=== PATIENT | male | born 1955 | race Hispanic/Latino ===

== ENCOUNTER 2019-07-10 18:17 | Emergency (ER) | payer OTHER, SELFPAY ==
--- NOTE | ~2019-07-10 | XR_ITS ---
EXAMINATION: XR chest 2V DATE: 07/10/2019 19:43 INDICATION: Cough and fever TECHNIQUE: PA and lateral views of the chest were obtained. COMPARISON: None FINDINGS: Hyperexpansion of lungs with flattening of the diaphragm and increased lucency with architectural dis tortion at the upper lung zones suggestive but not diagnostic of COPD. A few scattered small calcifie d pulmonary nodules consistent with old granulomatous disease. Bronchovascular crowding with bronchia l wall thickening in the bilateral lower lung zones. Mild tracheal bibasilar atelectasis. No pleural effusion or pneumothorax. The cardiomediastinal silhouette is normal. Visualized bones and soft tissu es are unremarkable. IMPRESSION: 1. Emphysema with bronchitis and mild basilar atelectasis. Reviewed, dictated and finalized at location A. [employer]
--- NOTE | ~2019-07-10 | CT_ITS ---
EXAMINATION: CT abdomen pelvis wo con DATE: 07/10/2019 22:06 INDICATION: Fever and abdominal pain. TECHNIQUE: Computed tomography (CT) of the abdomen and pelvis was performed without intravenous contr ast. Automated exposure control and iterative reconstruction technique were employed. The dose-length product was 388.29 mGy-cm. COMPARISON: None FINDINGS: Bronchial wall thickening and scattered mucous plugging in the right middle and bilateral lower lobes . There are patchy groundglass opacity in each of these lobes most prominent in the right lower lobe consistent with pneumonia. No pleural effusion. Heart size is normal. Atherosclerotic coronary artery calcifications. No pericardial effusion. Liver, gallbladder, spleen, pancreas, bilateral adrenal gla nds are normal. Bilateral nonobstructing renal stones measuring 4 mm the lower pole of the right kidn ey and 1 mm at the upper and lower poles of the left kidney. No hydronephrosis. Bowels including the appendix are normal. Bladder is normal. Prostatomegaly. There is calcified atherosclerosis of the aor ta and bilateral iliac arteries. No free intraperitoneal gas or fluid. No pathologically enlarged abd ominal or pelvic lymphadenopathy. There are few scattered bone islands in the spine and pelvis. There is a 12 x 10 x 18 mm more irregular sclerotic lesion in S3 which abuts the anterior and posterior co rtices but without evident erosions favoring a benign etiology such as enchondroma. IMPRESSION: 1. Bronchitis with mucous plugging and multifocal pneumonia most prominent in the right lower lobe an d to a lesser degree the right middle and left lower lobes. 2. Nonobstructing nephrolithiasis. 3. Prostatomegaly. 4. Irregular sclerotic lesion at S3 without aggressive features which favors a benign etiology such a s enchondroma. Would recommend correlation with any prior outside imaging if available. Otherwise cou ld consider bone scan for further evaluation. Reviewed, dictated and finalized at location A. [facility] IMPRESSION: 1. Bronchitis with mucous plugging and multifocal pneumonia most prominent in t he right lower lobe and to a lesser degree the right middle and left lower lobe s. 2. Nonobstructing nephrolithiasis. 3. Prostatomegaly. 4. Irregular sclerotic lesion at S3 without aggressive features which favors a benign etiology such as enchondroma. Would recommend correlation with any prior outside imaging if available. Otherwise could consider bone scan for further e valuation.
[2019-07-10 18:32] VITALS: BP 123/81; PULSE 95; RESP 18; TEMP 39.4; O2SAT 93
[2019-07-10] MEDS: ACETAMINOPHEN 500 MG TABLET 1000 MG PO (18:40)
[2019-07-10 18:52] LABS: Basophils Percent Auto 0.3 % (0.2-1.2); Eosinophils Absolute Auto 0.1 K/mm3 (0-0.3); Eosinophils Percent Auto 1.6 % (0-4.4); Hematocrit 47.4 % (42.0-52.0); Hemoglobin 15.2 g/dL (14.0-18.0); Immature Granulocyte Absolute 0.02 K/mm3 (0.00-0.031); Immature Granulocyte Percent A 0.2 % (0-0.5); Lymphocytes Absolute Auto 1.74 K/mm3 (0.9-3.2); Lymphocytes Percent Auto 19.4 % (18.3-44.2); Mean Corpuscular HGB Conc 32.1 g/dl (32-36); Mean Corpuscular Hemoglobin 28.9 pg (26-34); Mean Corpuscular Volume 90.1 fl (80-100); Mean Platelet Volume 11.7 fl (7.4-10.4); Monocytes Absolute Auto 0.4 K/mm3 (0.1-0.6); Monocytes Percent Auto 4.4 % (2.6-8.5); Neutrophils Absolute Auto 6.6 K/mm3 (1.3-6.7); Neutrophils Percent Auto 74.1 % (45.5-73.1); Platelet Count Result 142 k/mm3 (150-375); Red Blood Count 5.26 M/mm3 (4.6-6.20); Red Cell Distribution Width 14.4 % (11.5-14.5)
[2019-07-10 19:03] LABS: Blood Urea Nitrogen 14 mg/dL (9-20); Calcium 9.5 mg/dL (8.4-10.2); Carbon Dioxide 26 mmol/L (22-30); Chloride 100 mmol/L (98-107); Estimated Glomerular Filt Rate > 60; Glucose 150 mg/dL (75-110); Potassium 4.2 mmol/L (3.4-5.0); Sodium 140 mmol/L (137-145)
--- NOTE | 2019-07-10 21:17 | ED.FEVER ---
HPI - Fever General Chief Complaint: Fever Stated Complaint: cough/chills Time Seen by Provider: 07/10/19 21:04 Source: patient, family and RN notes reviewed Mode of arrival: ambulatory Limitations: no limitations History of Present Illness HPI Narrative: A 64 y/o male presents to the ED with a worsening fever of 103 and chills for the past month. He reports associated fatigue, dry cough, and that he has lost 7 lbs over the last month. He denies anything aggravating or alleviating his symptoms. He also denies any CP, SOB, N/V/D, ABD pain, and any other medical complaints at this time. MD elicited complaint: fever (103) Onset (ago): month(s) (1) Exacerbating factors: nothing Relieving factors: nothing Associated symptoms: chills, cough (dry), weight loss (7lbs in a month) and other (fatigue) Related Data Home Medications Medication Instructions Recorded Confirmed aspirin 07/10/19 atorvastatin 07/10/19 carvedilol 07/10/19 clopidogrel 07/10/19 enalapril maleate 07/10/19 Allergies Allergy/AdvReac Type Severity Reaction Status Date / Time No Known Allergies Allergy Verified 07/10/19 22:45 Review of Systems Review of Systems: All systems reviewed & are unremarkable except as noted in HPI and below Constitutional: Constitutional: Reports chills, Reports fatigue, Reports fever(s) (103), Denies headache(s), Denies night sweats and Reports weight loss (7lbs in one month) Eyes: Eyes: Denies change in vision, Denies loss of vision and Denies other visual disturbances ENT: Denies headache(s), Denies hoarseness, Denies epistaxis, Denies nasal congestion and Denies sore throat Cardiovascular: Cardiovascular: Denies chest pain, Denies leg edema, Denies palpitations and Denies dyspnea Respiratory: Respiratory: Reports cough (dry), Denies dyspnea and Denies wheezing Gastrointestinal: Gastrointestinal: Denies abdominal pain, Denies diarrhea, Denies nausea and Denies vomiting Genitourinary: Genitourinary: Denies hematuria, Denies dysuria and Denies urinary frequency Musculoskeletal: Musculoskeletal: Denies abnormal gait, Denies deformity, Denies joint swelling, Denies muscle weakness and Denies numbness Integumentary/Breasts: Skin/Breast: Denies rash, Denies unusual bruising and Denies wounds Neurologic: Denies abnormal gait, Denies headache(s), Denies focal weakness, Denies loss of vision and Denies numbness Psychiatric: Psychiatric: Reports no additional psychiatric complaints Endocrine: Endocrine: Denies fatigue and Denies palpitations Hematologic/Lymphatic: Hematologic/Lymphatic: Denies easy bleeding and Denies easy bruising Allergic/Immunologic: Allergic/Immunologic: Denies wheezing PMFSH Past Medical History Medical History (Updated 07/10/19 @ 22:55 by John Lopez MD) Medical history unknown Surgical History Surgical History (Updated 07/10/19 @ 22:27 by Moises Ascencio) Surgical history unknown Family History Family History Mother Patient's mother is in good health, Onset Age: 87 Father Patient's father is in good health, Onset Age: 73 Social History Social History (Updated 07/10/19 @ 22:27 by Moises Ascencio) Smoking status: Former smoker Alcohol intake: never Gender identity (if verbalized by the patient): Male Exam Const: General: healthy appearing, no acute distress and well developed Nutritional Appearance: well nourished Orientation/consciousness: patient oriented x3 (alert) and Other orientation findings (Alert) Limitations: no limitations HENMT: Head: normocephalic and atraumatic Ears: external ears normal General nose exam: No nasal discharge present and no epistaxis Face and sinus: face symmetric Mouth: Yes lip normal, Yes tongue normal and Yes moist mucous membranes Throat: other (No exudate, no erythema) Eyes: Conjunctivae: conjunctivae normal Sclera: sclerae normal EOM: EOMs intact bilaterally Ne
[2019-07-10 21:30] VITALS: BP 134/81; PULSE 90; RESP 16; O2SAT 100
[2019-07-10 21:58] LABS: CRP 0.7 mg/dL (<1.0)
[2019-07-10 22:26] LABS: Thyroid Stimulating Hormone Reflex 0.473 uIU/mL (0.465-4.68)
[2019-07-10] MEDS: LACTATED RINGERS 1,000 ML 999 ML IV CONT (22:34)
[2019-07-10 22:35] VITALS: BP 100/66; PULSE 75; RESP 18; TEMP 37.3; O2SAT 96
[2019-07-10 23:16] VITALS: BP 116/72; PULSE 72; RESP 18; TEMP 37.2; O2SAT 94
--- NOTE | 2019-07-15 00:43 | PC.NURSE ---
LATE ENTRY This note is being entered to document information to the patient's record. The following information was omitted on [], by [yusra rosario]. pt LR discontinued at 2300 prior to d/c.
== END 2019-07-10 23:18 | disposition home or self-care (01) ==
PROVIDERS: Emergency Medicine; Emergency Provider Emergency Medicine
DX: J18.1 Lobar pneumonia, unspecified organism (principal); Z87.891 Personal history of nicotine dependence; N20.0 Calculus of kidney; M89.9 Disorder of bone, unspecified; N40.0 Benign prostatic hyperplasia without lower urinary tract symptoms
CPT/HCPCS: 36415; 71046; 74176; 80048; 83605; 84443; 85025; 86140; 87040; 87804; 99284; A9270; J7120

== ENCOUNTER 2023-03-02 10:28 | Outpatient (CLI) | payer MEDICARE, MEDICAID, SELFPAY ==
[2023-03-02 12:26] LABS: Basophils Absolute Auto 0.1 K/mm3 (0.0-0.1); Basophils Percent Auto 0.8 % (0.2-1.2); Eosinophils Absolute Auto 0.4 K/mm3 (0-0.3); Eosinophils Percent Auto 4.3 % (0-4.4); Hematocrit 46.6 % (42.0-52.0); Hemoglobin 14.6 g/dL (14.0-18.0); Immature Granulocyte Absolute 0.04 K/mm3 (0.00-0.031); Immature Granulocyte Percent A 0.5 % (0-0.5); Lymphocytes Absolute Auto 2.41 K/mm3 (0.9-3.2); Lymphocytes Percent Auto 28.9 % (18.3-44.2); Mean Corpuscular HGB Conc 31.3 g/dl (32-36); Mean Corpuscular Hemoglobin 29.4 pg (26-34); Mean Platelet Volume 12.2 fl (7.4-10.4); Monocytes Absolute Auto 0.5 K/mm3 (0.1-0.6); Monocytes Percent Auto 6.3 % (2.6-8.5); Neutrophils Absolute Auto 4.9 K/mm3 (1.3-6.7); Neutrophils Percent Auto 59.2 % (45.5-73.1); Platelet Count Result 154 k/mm3 (150-375); Red Blood Count 4.96 M/mm3 (4.6-6.20); Red Cell Distribution Width 13.7 % (11.5-14.5); White Blood Count 8.4 K/mm3 (4.5-10.0)
[2023-03-02 12:36] LABS: INR 0.9; Prothrombin Time 12.9 Seconds (11.1-14.7)
[2023-03-02 12:37] LABS: Alanine Aminotransferase 43 U/L (6-50); Albumin Level 4.9 g/dL (3.5-5.1); Alkaline Phosphatase 56 U/L (38-126); Anion Gap 9 mmol/L (8-16); Aspartate Amino Transferase 39 U/L (17-59); Bilirubin,Total 0.9 mg/dL (0.2-1.3); Blood Urea Nitrogen 20 mg/dL (9-20); Calcium 9.6 mg/dL (8.4-10.2); Carbon Dioxide 26 mmol/L (22-30); Chloride 102 mmol/L (98-107); Estimated Glomerular Filt Rate > 60; Glucose 100 mg/dL (65-110); Potassium 4.4 mmol/L (3.4-5.0); Sodium 137 mmol/L (137-145)
== END 2023-03-02 10:29 | disposition home or self-care (01) ==
PROVIDERS: PCP Physician Assistant; Visit Provider Urology
DX: Z01.818 Encounter for other preprocedural examination (principal); C61 Malignant neoplasm of prostate
CPT/HCPCS: 36415; 80053; 85025; 85610; 85730; 86850; 86900; 86901; 87086

== ENCOUNTER 2023-03-14 12:15 | Inpatient (IN) | payer MEDICARE, MEDICAID, SELFPAY ==
--- NOTE | 2023-03-02 11:13 | PC.NURSE ---
PRE-OP INSTRUCTIONS, PLEASE READ CAREFULLY Report to the Outpatient Waiting Room, entrance under the green pavilion located off [facility], at time _0600_ on date _03/13/23_. Planned Procedure Time: _0730_. PACK A SMALL OVERNIGHT BAG Time changes happen often and if your time is changed the preop area will call you the afternoon before. - You and your visitor will be asked to self-screen and do not enter if you have any COVID symptoms. - A mask is optional within the hospital at this time. -VISITING HOURS 8AM-8PM Patients may have clear liquids (water, carbonated beverages, clear teas, apple juice) until 3 hours prior to surgery (0430 AM) with a maximum of 20 ounces. - No food from midnight until time of surgery Take the following medications with a SIP of water the morning of surgery: _CARVEDILOL_ DO NOT STOP ANY OF YOUR OTHER PRESCRIPTION MEDICATIONS PRIOR TO SURGERY ?EXCEPT THE FOLLOWING Medications to discontinue per DR. HO - _ASPIRIN & PLAVIX 7 DAYS PRIOR TO SURGERY, Date to take last dose 03/05/23_ Please no make-up, nail bulgarian, hairspray, perfume, deodorant, or body powder the day of surgery. No jewelry (including any body piercings) or valuables the day of surgery, leave them at home. Please take a shower or bath the night before, or the morning of, surgery with an antibacterial soap. Wear comfortable, loose fitting clothing. - Jewelry must be removed prior to entering the operating room. Rings and piercings that are not removed may be cut off. - The hospital will not accept responsibility for valuables. - Please leave all valuables, including medications, at home the day of surgery. If you are going home after surgery, a licensed vacuum truck driver must drive you home. - NO public transportation without another adult if you receive anesthesia. - We recommend that an adult stay with you for 24 hours following discharge. - We also recommend that you do not drive, make important decision, drink alcoholic beverages, or take any drugs that were not prescribed by your health care provider for at least 24 hours after your discharge time. Follow any additional instructions given to you from your surgeon. If you or anyone in your household have experienced Covid symptoms in the past week, please notify your surgeon or the nurse liaison at the phone number below for possible testing. Instructions given to _PATIENT & SPOUSE_and asked if any additional questions and then verbalized understanding. Patient advised to call surgeon office or pre surgery nurse liaison [phone] if any additional questions.
[2023-03-02 11:37] VITALS: BP 122/72; PULSE 58; RESP 20; TEMP 36.7; O2SAT 100; BMI 24.6
--- NOTE | 2023-03-12 14:04 | P.PNAN_ITS ---
Anes - Initial Pre Proc Eval Procedure: Operation Date: 03/13/23 07:30 Proposed Procedures p Robotic Assisted Nerve Sparing Prostatectomy with Possible Pelvic Lymph Node Dissection - Eulogio Toussaint MD Date/Time: 03/12/23 14:04 Surgeon: Eulogio Toussaint MD Pre Op Diagnosis: Prostate Ca Patient Data Age: 68 Gender: M Height: 1.71 m Weight: 72.4 kg Last Vital Signs Temp 98.0 F 03/02/23 11:37 Pulse 58 L 03/02/23 11:37 Resp 20 03/02/23 11:37 BP 122/72 03/02/23 11:37 Pulse Ox 100 03/02/23 11:37 O2 Del Method Room Air 03/02/23 11:37 Allergies Allergy/AdvReac Type Severity Reaction Status Date / Time No Known Allergies Allergy Unverified 03/13/23 06:27 Home Medications Medication Instructions Recorded Confirmed Type aspirin 81 mg tablet,delayed 81 mg PO QAM 03/02/23 03/13/23 History release atorvastatin 40 mg tablet 40 mg QAM 03/02/23 03/13/23 History carvedilol 3.125 mg tablet 3.125 mg BID 03/02/23 03/13/23 History clopidogrel 75 mg tablet 75 mg QAM 03/02/23 03/13/23 History enalapril maleate 5 mg tablet 5 mg BID 03/02/23 03/13/23 History ezetimibe 10 mg tablet 10 mg QAM 03/02/23 03/13/23 History hydrochlorothiazide 12.5 mg capsule 12.5 mg QAM 03/02/23 03/13/23 History omega 6-oyc-igf-fish oil 1,000 mg 1 cap PO DAILY 03/02/23 03/13/23 History (120 mg-180 mg) capsule (Fish Oil) Patient hx anesthesia problems: none Family hx anesthesia problems: none Results Review: All pre-operative results and documents have been reviewed as part of the pre-operative evaluation. [facility] Social History Social History Smoking packs per day: 2 Smoking cigarettes per day: 40.0 Years smoked: 52 Smoking pack-years: 104.00 Smoking status: Former smoker Tobacco type: cigarettes Second hand tobacco smoke exposure: No Smoking end date: 09/05/17 Alcohol intake: former Alcohol use details: QUIT 1990 Substance use: never Substance use type: does not use Living arrangements: with family Spiritual care concerns: No Anes - Eval Final PreProcedure Day of Procedure 03/12/23 14:04 Patient weight: normal Heart: regular rate and rhythm Lungs: clear to auscultation Airway: Mallampati scale class II Neurological: alert and oriented Last oral intake: >/= 8 hours ASA classification: III Emergent: no Anesthetic plan: proceed Anesthesia type and monitoring: general ETT and standard monitoring Results Review: All pre-operative results and documents have been reviewed as part of the pre- operative evaluation. Informed Consent: The patient's anesthetic plan and its attendant risks and benefits were discussed with the patient/family/POA. Questions were solicited and answers provided to the satisfaction of the patient/family/POA.
[2023-03-13] VITALS (16 sets, daily range): BP systolic 94–128; BP diastolic 51–81; PULSE 67–88; RESP 12–18; TEMP 36.1–37.6; O2SAT 90–100
[2023-03-13] MEDS: LACTATED RINGERS 1,000 ML 30 ML IV CONT ×2 (06:15→11:11)
--- NOTE | 2023-03-13 07:16 | WPDHPUPDATE1 ---
History and Physical Update Update Date/Time: 03/13/23 07:16 History and Physical has been reviewed, including an updated exam of the patient. There are NO changes in the patient's condition. Risks, benefits, and alternatives have been discussed and questions answered. Patient agrees to proceed with procedure. Proceed with robotic assist nerve sparing prostatectomy with possible plnd
[2023-03-13] MEDS: ceFAZolin 2 GM/D5W 50 ML 2 GM/50 ML BAG IVPB (07:28)
[2023-03-13] MEDS: BUPivacaine HCL 0.5% 10 ML AMP 30 ML INFILTRATE (10:45)
--- NOTE | 2023-03-13 10:59 | P.OP_ITS ---
Procedure Note - Detailed Date of Procedure 03/13/23 Pre-op Diagnosis Prostate Ca Post-op Diagnosis Same Procedure Performed Robotic assisted nerve-sparing prostatectomy Surgeon Eulogio Toussaint MD Anesthesia General Description of Procedure Patient is taken to the operative suite correctly identified. Once anesthesia was obtained was placed in dorsal lithotomy position and prepped and draped usual sterile fashion. Montaño catheter was placed inflated with 15 cc in the balloon. Midline incision was made above the umbilicus and carried down to the rectus fascia. Veress needle was inserted the abdomen was insufflated 15 mmHg pressure. Camera port was then placed in direct vision. Working ports were placed in appropriate locations. Patient was placed in a steep Trendelenburg position and the robot was docked. He did have quite a bit of adhesions along the left colon. He had a prior left mesh hernia which was visual. Posterior approach was then taken. Seminal vesicles were dissected out in their entirety in the vas were transected. The plane between the prostate and rectum was developed. Bladder was taken down in standard fashion. Space of Retzius was developed bilaterally. Dorsal venous complex was isolated after the puboprostatic were transected. Dorsal venous complex was isolated using 0 Vicryl secured to pubic bone. Bladder neck was then opened anteriorly. Patient had extremely large median lobe which was protruding into the bladder neck. We dissected this out and transected the posterior bladder neck. Plane over the seminal vesicles was dissected those were brought out to the field. Bilateral nerve-sparing was performed. Pedicles were transected after a fulgurated. There was very minimal bleeding from this area. Prostate was then dissected down the urethra. Dorsal venous complex was transected. Urethral stump was also transected. Specimen was placed in Endo-Catch bag. Surgicel was placed over the neurovascular bundles. A Miguel Angel stitch was placed. Anastomosis was performed using a V lock suture in a running fashion. There was good approximation of mucosa. Eighteen Slovenian Montaño was placed with 10 cc in the balloon. Bladder was filled with 300 cc no evidence of extravasation. All lap count needle counts sponge counts were correct. The robot was undocked. The midline incision was extended and the specimens brought out through that area. Rectus fascia was closed using 0 Vicryl in running fashion. Subcuticular stitches were placed. Incisions were anesthetized with 4% lidocaine. Patient is taken recovery stable condition. This completes dictation. Please send a copy of the op note to my office. Estimated Blood Loss 50 Drains Yes Packing No Pathology Yes Complications No immediate complications Condition Stable Disposition PACU
[2023-03-13] MEDS: fentaNYL CITRATE INJ (*CRX) 100 MCG/2 ML VIAL 25 MCG IV PUSH ×2 (11:39→11:57)
[2023-03-13] MEDS: LACTATED RINGERS 1,000 ML 125 ML IV CONT ×2 (13:14→21:35)
[2023-03-13] MEDS: HYDROcodone/acetaminophen (*CRX) 5-325 MG TABLET 2 TAB PO (13:14)
--- NOTE | 2023-03-13 13:16 | ADMGEN ---
This patient, Franco Aly, was admitted to 2 Medical Room 256-01. Patient/family oriented to hospital policies and general routines including ID bracelet, bed and alarms, visiting hours, pain management, procedures, bathroom and other care routines, personal items, smoking policy, room service/diet, and visiting hours. Information on how to activate the Rapid Response Team has been discussed. Patient/Family are encouraged to report perceived risks to care and to ask questions if they do not understand what they are told or what they should do.
[2023-03-13] MEDS: carvediloL 3.125 MG TABLET PO (17:33)
[2023-03-13] MEDS: ENALAPRIL MALEATE 5 MG TABLET BY MOUTH (17:33)
[2023-03-14] VITALS (10 sets, daily range): BP systolic 90–102; BP diastolic 56–62; PULSE 70–80; RESP 16–20; TEMP 36.7–37.9; O2SAT 81–93
--- NOTE | ~2023-03-14 | XR_ITS ---
XR chest 1V portable 03/14/2023 11:23 Indication: Dyspnea. Low blood pressure. Procedure: AP portable chest Comparison: 07/10/2019 Findings: Developing bibasilar airspace disease. Heart size normal. Low lung volumes. No significant effusion or pneumothorax. No acute osseous abnormality. Impression: 1: Developing bibasilar airspace disease, pneumonia versus atelectasis. Reviewed, dictated and finalized at location B. Impression: 1: Developing bibasilar airspace disease, pneumonia versus atelectasis.
--- NOTE | ~2023-03-14 | CT_ITS ---
EXAMINATION: CT abdomen pelvis wo/w con DATE: 03/14/2023 14:46 INDICATION: Postoperative gross hematuria TECHNIQUE: Computed tomography (CT) of the abdomen and pelvis was performed without intravenous contr ast. CT of the abdomen and pelvis was then performed with a total of 130 mL Omnipaque-350 intravenous contrast using a double-bolus technique for simultaneous opacification of the renal parenchyma and r enal collecting system. Automated exposure control and iterative reconstruction technique were employ ed. The dose-length product was 834.19 mGy-cm. COMPARISON: CT dated 07/10/2019 FINDINGS: Moderate emphysema in the visualized lower lungs. Calcified right middle lobe nodule consistent with old granulomatous disease. Tiny bilateral pleural effusions. Consolidation in the dependent aspect of the bilateral lower lobes with corresponding volume loss and bronchovascular crowding and would favo r atelectasis over pneumonia. Heart size is normal. No pericardial effusion. Atherosclerotic coronary artery calcifications and likely stenting along the left anterior descending coronary artery. Postop erative changes of prior prostatectomy. Midline surgical wound along with a few small scattered foci of gas in the pelvic retroperitoneum and abdominal wall and small amount of free intraperitoneal gas in the abdomen and pelvis. Right lower quadrant surgical drain with distal tip in the anterior deep p betito. Liver, gallbladder, spleen, pancreas and bilateral adrenal glands are normal. Again seen is a 2-3 mm stone at the lower pole of the right kidney and a 1 mm stone at a lower pole calyx of the left kidne y. Kidneys enhance symmetrically with 5 mm nonenhancing cyst at the upper pole of the right kidney. B ilateral ureters are opacified in their entirety on the post contrast imaging with no urothelial irre gularities bladder ureter or in the bilateral renal collecting systems. Layering fluid contrast level surrounding the Montaño catheter within the incompletely distended bladder. No evident clot within the bladder. Mild stranding likely related to the prior surgery in the perirectal fat. No free intraperi toneal fluid. No pathologically enlarged abdominal or pelvic lymphadenopathy. Mild scattered degenera tive skeletal changes in the spine and pelvis. A few chronic small sclerotic bone islands in the pelv is with additional unchanged peripherally sclerotic lesion at S3 which could represent either an gisela tional atypical bone island or enchondroma. IMPRESSION: 1. Expected postoperative changes of recent prostatectomy. 2. Bilateral nonobstructing nephrolithiasis at the lower poles of both kidneys. 3. Consolidation in the bilateral lower lobes with corresponding volume loss and favor atelectasis ov er pneumonia or aspiration. 4. Moderate emphysema. Reviewed, dictated and finalized at location A. IMPRESSION: 1. Expected postoperative changes of recent prostatectomy. 2. Bilateral nonobstructing nephrolithiasis at the lower poles of both kidneys. 3. Consolidation in the bilateral lower lobes with corresponding volume loss an d favor atelectasis over pneumonia or aspiration. 4. Moderate emphysema.
[2023-03-14] MEDS: LACTATED RINGERS 1,000 ML 125 ML IV CONT ×2 (05:44→20:03)
[2023-03-14 06:06] LABS: Hematocrit 37.1 % (42.0-52.0); Hemoglobin 11.7 g/dL (14.0-18.0)
[2023-03-14 06:35] LABS: Anion Gap 3 mmol/L (8-16); Blood Urea Nitrogen 17 mg/dL (9-20); Calcium 8.6 mg/dL (8.4-10.2); Carbon Dioxide 29 mmol/L (22-30); Chloride 105 mmol/L (98-107); Estimated CRCL calculation 61 ml/min; Estimated Glomerular Filt Rate > 60; Glucose 115 mg/dL (65-110); Potassium 4.4 mmol/L (3.4-5.0); Sodium 137 mmol/L (137-145)
--- NOTE | 2023-03-14 08:14 | WPDUROPN2 ---
Progress Note: A&P Assessment and Plan (1) Adenocarcinoma of prostate: Code(s): C61 - Malignant neoplasm of prostate Status: Acute Assessment and Plan: Doing well overall postoperatively. Will hold BP meds this morning and have hospitalist address. Will give 500 cc bolus of normal saline. If does well this afternoon an okay medically will discharge home with Montaño catheter and have it removed in a week after cystogram (2) Hypotension: Code(s): I95.9 - Hypotension, unspecified Status: Acute Assessment and Plan: See above Subjective Subjective Date/Time Seen: 03/14/23 08:14 Post Op day: 1 (Robotic assisted nerve-sparing prostatectomy) Principal diagnosis: Adenocarcinoma prostate Interval history: Doing well clinically postop day 1. No significant complaints at there was then some mild expected lower abdominal discomfort. Blood pressure this morning slightly low at 90/56 Review of Systems Review of Systems: All systems reviewed & are unremarkable except as noted in HPI and below Exam Const: General: cooperative, comfortable and no acute distress Resp: Effort & Inspection: normal respiratory effort Cardio: Rate: regular rate Rhythm: regular rhythm GI: Inspection: normal to inspection GI Palp: Yes Soft to palpation Objective Data Vital Signs Vital Signs: Vital Signs - 24 hr 03/13/23 11:11 03/13/23 11:15 03/13/23 11:30 Temperature 36.3 C L Pulse Rate 72 68 71 Respiratory Rate 16 17 14 Blood Pressure 94/51 L 98/64 L 111/62 Pulse Oximetry 100 100 92 Oxygen Delivery Simple Face Mask Simple Face Mask Room Air Oxygen Flow Rate 10 10 03/13/23 11:45 03/13/23 12:00 03/13/23 12:15 Temperature Pulse Rate 67 69 72 Respiratory Rate 12 13 12 Blood Pressure 114/73 121/59 L 124/70 Pulse Oximetry 96 95 96 Oxygen Delivery Nasal Cannula Nasal Cannula Nasal Cannula Oxygen Flow Rate 3 3 2 03/13/23 12:30 03/13/23 12:45 03/13/23 13:00 Temperature 36.4 C L 36.7 C Pulse Rate 85 88 82 Respiratory Rate 17 16 16 Blood Pressure 128/81 117/55 L 108/52 L Pulse Oximetry 96 91 98 Oxygen Delivery Nasal Cannula Oxygen Flow Rate 3 03/13/23 13:30 03/13/23 14:30 03/13/23 15:57 Temperature 36.6 C 36.4 C L Pulse Rate 81 76 Respiratory Rate 16 14 Blood Pressure 124/69 115/57 L Pulse Oximetry 99 98 99 Oxygen Delivery Nasal Cannula Oxygen Flow Rate 1 03/13/23 17:33 03/13/23 18:30 03/13/23 21:02 Temperature 36.5 C 37.6 C H Pulse Rate 79 77 80 Respiratory Rate 16 18 Blood Pressure 114/60 107/59 L Pulse Oximetry 98 90 Oxygen Delivery Oxygen Flow Rate 03/14/23 00:48 03/13/23 20:30 03/14/23 03:45 Temperature 37.1 C 36.8 C Pulse Rate 77 78 Respiratory Rate 20 18 Blood Pressure 96/57 L 90/56 L Pulse Oximetry 92 91 Oxygen Delivery Room Air Oxygen Flow Rate Intake/Output Intake/Output: Intake & Output 03/11/23 03/12/23 03/13/23 03/14/23 23:59 23:59 23:59 23:59 Intake Total 2740 1340 Output Total 210 1330 Balance 2530 10 Meds/Results Medications: Active Medications Generic Name Dose Route Start Last Admin Trade Name Freq PRN Reason Stop Dose Admin Hydrocodone Bitart/Acetaminophen 1 tab 03/13/23 12:36 Hydrocodone/Acetaminophen (*Crx) 5-325 Mg Tablet PO Q6H PRN Pain Rated 1-3 Hydrocodone Bitart/Acetaminophen 2 tab 03/13/23 12:36 03/13/23 13:14 Hydrocodone/Acetaminophen (*Crx) 5-325 Mg Tablet PO 2 tab Q6H PRN Administration Pain Rated 4-6 Atorvastatin Calcium 40 mg 03/14/23 09:00 Atorvastatin 40 Mg Tablet PO [facility] Carvedilol 3.125 mg 03/13/23 17:00 03/13/23 17:33 Carvedilol 3.125 Mg Tablet PO 3.125 mg BID MELINA Administration Enalapril Maleate 5 mg 03/13/23 17:00 03/13/23 17:33 Enalapril Maleate 5 Mg Tablet BY MOUTH 5 mg BID MELINA Administration Hydrochlorothiazide 12.5 mg 03/14/23 09:00 Hydrochlorothiazide 12.5 Mg Capsule BY MOUTH
[2023-03-14] MEDS: ATORVASTATIN 40 MG TABLET PO (08:55)
[2023-03-14] MEDS: levoFLOXacin 500 MG TABLET PO (08:55)
[2023-03-14] MEDS: SODIUM CHLORIDE 0.9% IV 500 ML IV CONT ×2 (08:56→11:48)
--- NOTE | 2023-03-14 09:04 | WPDANESPN ---
Anes - Prog Note Post-Op Date/Time: 03/14/23 09:04 Cardiovascular status: normal Respiratory status: normal Airway patency: baseline Mental status: baseline Post-Op hydration status: normal Vital Signs: Last Vital Signs Temp 98.2 F 03/14/23 03:45 Pulse 78 03/14/23 03:45 Resp 18 03/14/23 03:45 BP 90/56 L 03/14/23 03:45 Pulse Ox 91 03/14/23 03:45 O2 Del Method Room Air 03/13/23 20:30 O2 Flow Rate 1 03/13/23 15:57 Pain Score (VAS): 0/10 I/O: Intake & Output 03/13/23 03/14/23 03/14/23 23:59 07:59 15:59 Intake Total 1240 1340 Output Total 100 1330 Balance 1140 10 Laboratory Tests 03/14/23 05:49 03/14/23 05:49 03/14/23 05:49 Hgb 11.7 L Hct 37.1 L Sodium 137 Potassium 4.4 Chloride 105 Carbon Dioxide 29 Anion Gap 3 L BUN 17 Creatinine 1.00 Estim Creat Clear Calc 61 Estimated GFR > 60 Glucose 115 H Calcium 8.6 Post-procedural complaints: none Patient Feedback: Patient satisfied with anesthetic care.
[2023-03-14 09:11] LABS: Basophils Percent Auto 0.3 % (0.2-1.2); Eosinophils Absolute Auto 0.1 K/mm3 (0-0.3); Eosinophils Percent Auto 0.5 % (0-4.4); Hemoglobin 12.2 g/dL (14.0-18.0); Immature Granulocyte Absolute 0.04 K/mm3 (0.00-0.031); Immature Granulocyte Percent A 0.3 % (0-0.5); Lymphocytes Percent Auto 19.5 % (18.3-44.2); Mean Corpuscular HGB Conc 32.1 g/dl (32-36); Mean Corpuscular Volume 93.4 fl (80-100); Mean Platelet Volume 12.2 fl (7.4-10.4); Monocytes Absolute Auto 0.9 K/mm3 (0.1-0.6); Monocytes Percent Auto 7.6 % (2.6-8.5); Neutrophils Absolute Auto 8.5 K/mm3 (1.3-6.7); Neutrophils Percent Auto 71.8 % (45.5-73.1); Platelet Count Result 129 k/mm3 (150-375); Red Blood Count 4.07 M/mm3 (4.6-6.20); Red Cell Distribution Width 13.8 % (11.5-14.5); White Blood Count 11.8 K/mm3 (4.5-10.0)
[2023-03-14 09:20] LABS: Lactic Acid Reflex 1.2 mmol/L (0.7-2.0)
[2023-03-14] MEDS: ACETAMINOPHEN 325 MG TABLET 650 MG PO (11:47)
[2023-03-14] MEDS: oxyBUTYnin CHLORIDE 5 MG TABLET PO (11:48)
--- NOTE | 2023-03-14 13:50 | PM.IMCN ---
Assessment and Plan Assessment and plan (1) Abdominal pain: Code(s): R10.9 - Unspecified abdominal pain Status: Acute Assessment and Plan: + abdominal distention and hyperactive bowel sounds Not passing flatus, concerns for ileus low grade temperature of 100.2 New oxygen requirement of 1 L p NC. Patient is not taking deep breaths related to his abdominal pain. Encourage abdominal splinting, cough, deep breathing and use of IS/PEP. CT abdomen ordered stat by urology---no acute process seen. He does have a lot of gas in his bowel. Will give 1 x suppository now and start on miralax and senna. Suspected reactive leukocytosis of 11.7 k/mm3 after surgery Chest XR is concerning for atelactasis. IS and Pep therapy ordered. On PO Levaquin per surgery as of 03/14. Will cover for any pneumonia concerns however, atelectasis seems to be the culprit. Full liquid diet Can add some simethicone prn (2) H/O prostatectomy: Code(s): Z90.79 - Acquired absence of other genital organ(s) Status: Acute Assessment and Plan: POD [address] Toussaint Surgical incisions are well approximated with glue and JAMES. No S/S of infection. Pain medications, DVT prophylaxis deferred to surgery (3) Hypotension: Code(s): I95.9 - Hypotension, unspecified Status: Acute Assessment and Plan: Blood pressures have been 90's/50's today without tachycardia. Patient denies dizziness Holding blood pressure medications today Monitor blood pressure trends Currently has IV fluids LR @ 75 ml per hour (4) Hematuria: Code(s): R31.9 - Hematuria, unspecified Status: Acute Assessment and Plan: Montaño bag with dark red urine present. Hgb 14.6 prior to surgery Post-op HgB 11.7-->12.2 Trend H/H and monitor for any further decline. Transfuse if HgB less than 7 g/dL Repeat Hgb ordered at 2100 (5) Adenocarcinoma of prostate: Code(s): C61 - Malignant neoplasm of prostate Status: Acute Assessment and Plan: Follow with [facility] POD 1 from prostatectomy HPI Date of Consult Consult date: 03/14/23 Requesting Physician: Eulogio Toussaint MD Primary Care Provider: Naila Hernandez, PA Consult Narrative Narrative: Franco Aly is a 68 year old male with a past medical history of CAD and [place] with stent placement, prostate cancer and abdominal hernia repair. He presented to [place] on 03/13 for a scheduled robotic assisted nerve-sparing prostatectomy. He is postop day 1 and has been having abdominal pain and distension. His blood pressures have also been running lower and he had a low-grade temperature of 100.2?. Medicine was consulted to follow along with his case and provide recommendations for chronic conditions. 03/14: Patient is seen resting in bed with his and daughter at bedside. He appears uncomfortable but in no acute distress. He complains of abdominal pain and distension. He denies dizziness, headache, chest pain, shortness a breath, nausea, vomiting, or diarrhea. His daughter says he ate a burger and some fries for lunch and they feel like he is drinking plenty of fluids. He did say that his last bowel movement was the day before surgery after using a Fleet enema. On assessment his abdomen is round, distended, with hyperactive bowel sounds. Surgical incisions are well approximated and open to air without signs and symptoms of infection. He does have a drain coiled in the right lower quadrant and a Montaño with dark red colored urine. His chest x-ray taken this morning is concerning for atelectasis. Urology is ordered a CT of his abdomen and repeat hemoglobin this afternoon. Review of Systems Review of Systems: All systems reviewed & are unremarkable except as noted in HPI and below PMFSH Past Medical History Medical History (Updated 03/14/23 @ 14:08 by Betsy Berg, GIORGIO) Adenocarcinoma of prostate CAD (coronary artery dis
[2023-03-14 15:01] LABS: Hematocrit 34.7 % (42.0-52.0); Hemoglobin 10.9 g/dL (14.0-18.0)
[2023-03-14] MEDS: SIMETHICONE 80 MG TAB.CHEW PO ×3 (15:05→20:04)
[2023-03-14] MEDS: HYDROcodone/acetaminophen (*CRX) 5-325 MG TABLET 2 TAB PO ×2 (16:26→23:30)
[2023-03-14] MEDS: BISACODYL 10 MG SUPPOSITORY RECTAL (18:25)
[2023-03-14] MEDS: SENNA/DOCUSATE SODIUM TABLET 1 TAB PO (20:04)
[2023-03-14 20:32] LABS: Hematocrit 36.9 % (42.0-52.0); Hemoglobin 11.7 g/dL (14.0-18.0)
[2023-03-15] VITALS (8 sets, daily range): BP systolic 109–132; BP diastolic 62–79; PULSE 63–75; RESP 14–16; TEMP 36.4–37.2; O2SAT 92–96
[2023-03-15] MEDS: LACTATED RINGERS 1,000 ML 75 ML IV CONT (04:05)
[2023-03-15] MEDS: SIMETHICONE 80 MG TAB.CHEW PO ×4 (08:55→20:51)
[2023-03-15] MEDS: ATORVASTATIN 40 MG TABLET PO (08:55)
[2023-03-15] MEDS: levoFLOXacin 500 MG TABLET PO (08:56)
--- NOTE | 2023-03-15 10:39 | P.PNIM_ITS ---
Progress Note: A&P Assessment and Plan (1) Abdominal pain: Code(s): R10.9 - Unspecified abdominal pain Status: Acute Assessment and Plan: + abdominal distention and hyperactive bowel sounds * Not passing flatus, concerns for ileus * low grade temperature of 100.2 * New oxygen requirement of 1 L p NC. Patient is not taking deep breaths related to his abdominal pain. Encourage abdominal splinting, cough, deep breathing and use of IS/PEP. * CT abdomen ordered stat by urology---no acute process seen. He does have a lot of gas in his bowel. Will give 1 x suppository now and start on miralax and senna. * Suspected reactive leukocytosis of 11.7 k/mm3 after surgery--WBC 9.1 today. * Chest XR is concerning for atelactasis. IS and Pep therapy ordered. * On PO Levaquin per surgery as of 03/14. Will cover for any pneumonia concerns however, atelectasis seems to be the culprit. * General diet * Can add some simethicone prn (2) H/O prostatectomy: Code(s): Z90.79 - Acquired absence of other genital organ(s) Status: Acute Assessment and Plan: POD [address] Toussaint * Surgical incisions are well approximated with glue and JAMES. No S/S of infection. * Pain medications, DVT prophylaxis deferred to surgery (3) Hypotension: Code(s): I95.9 - Hypotension, unspecified Status: Acute Assessment and Plan: Blood pressures have been 90's/50's today without tachycardia. * Patient denies dizziness * Holding blood pressure medications today * Monitor blood pressure trends (4) Hematuria: Code(s): R31.9 - Hematuria, unspecified Status: Acute Assessment and Plan: Montaño bag with dark red urine present. * Hgb 14.6 prior to surgery * Post-op HgB 11.7-->12.2 * Trend H/H and monitor for any further decline. * Transfuse if HgB less than 7 g/dL * Repeat Hgb ordered at 2100 (5) Adenocarcinoma of prostate: Code(s): C61 - Malignant neoplasm of prostate Status: Acute Assessment and Plan: Follow with [facility] POD 2 from prostatectomy Plan Wean oxygen to room air Subjective Date/time seen: 03/15/23 10:39 Interval history: Franco Aly is a 68 year old male with a past medical history of CAD and [place] with stent placement, prostate cancer and abdominal hernia repair.? He presented to [place] on 03/13 for a scheduled robotic assisted nerve-sparing prostatectomy.? He is postop day 1 and has been having abdominal pain and distension.? His blood pressures have also been running lower and he had a low- grade temperature of 100.2?.? Medicine was consulted to follow along with his case and provide recommendations for chronic conditions. 03/14:? Patient is seen resting in bed with his and daughter at bedside.? He appears uncomfortable but in no acute distress.? He complains of abdominal pain and distension.? He denies dizziness, headache, chest pain, shortness a breath, nausea, vomiting, or diarrhea.? His daughter says he ate a burger and some fries for lunch and they feel like he is drinking plenty of fluids.? He did say that his last bowel movement was the day before surgery after using a Fleet enema. On assessment his abdomen is round, distended, with hyperactive bowel sounds.? Surgical incisions are well approximated and open to air without signs and symptoms of infection.? He does have a drain coiled in the right lower quadrant and a Montaño with dark red colored urine.? His chest x-ray taken this morning is concerning for atelectasis.? Urology is ordered a CT of his abdomen and repeat hemoglobin this afternoon. 03/15: Mr Aly
[2023-03-15 11:06] LABS: Basophils Absolute Auto 0.1 K/mm3 (0.0-0.1); Basophils Percent Auto 0.6 % (0.2-1.2); Eosinophils Absolute Auto 0.1 K/mm3 (0-0.3); Eosinophils Percent Auto 1.5 % (0-4.4); Hematocrit 35.5 % (42.0-52.0); Hemoglobin 11.1 g/dL (14.0-18.0); Immature Granulocyte Absolute 0.04 K/mm3 (0.00-0.031); Immature Granulocyte Percent A 0.4 % (0-0.5); Lymphocytes Absolute Auto 1.45 K/mm3 (0.9-3.2); Mean Corpuscular HGB Conc 31.3 g/dl (32-36); Mean Corpuscular Hemoglobin 29.5 pg (26-34); Mean Corpuscular Volume 94.4 fl (80-100); Mean Platelet Volume 11.9 fl (7.4-10.4); Monocytes Absolute Auto 0.6 K/mm3 (0.1-0.6); Monocytes Percent Auto 6.3 % (2.6-8.5); Neutrophils Absolute Auto 6.8 K/mm3 (1.3-6.7); Neutrophils Percent Auto 75.2 % (45.5-73.1); Platelet Count Result 105 k/mm3 (150-375); Red Blood Count 3.76 M/mm3 (4.6-6.20); White Blood Count 9.1 K/mm3 (4.5-10.0)
[2023-03-15 11:24] LABS: Alanine Aminotransferase 21 U/L (6-50); Albumin Level 3.2 g/dL (3.5-5.1); Alkaline Phosphatase 39 U/L (38-126); Anion Gap 3 mmol/L (8-16); Aspartate Amino Transferase 24 U/L (17-59); Bilirubin,Total 0.8 mg/dL (0.2-1.3); Blood Urea Nitrogen 10 mg/dL (9-20); Calcium 8.5 mg/dL (8.4-10.2); Carbon Dioxide 29 mmol/L (22-30); Chloride 105 mmol/L (98-107); Estimated CRCL calculation 67 ml/min; Estimated Glomerular Filt Rate > 60; Glucose 124 mg/dL (65-110); Potassium 3.2 mmol/L (3.4-5.0); Sodium 137 mmol/L (137-145)
[2023-03-15] MEDS: POTASSIUM CHLORIDE 20 MEQ ER TABLET 40 MEQ PO (12:21)
[2023-03-15] MEDS: HYDROcodone/acetaminophen (*CRX) 5-325 MG TABLET 1 TAB PO (12:22)
--- NOTE | 2023-03-15 12:48 | WPDUROPN2 ---
Progress Note: A&P Assessment and Plan (1) Abdominal pain: Code(s): R10.9 - Unspecified abdominal pain Status: Acute Assessment and Plan: Improved with bowel regimen. Experiencing normal post operative pain at this time well controlled on pain mecication with activity. (2) Hematuria: Code(s): R31.9 - Hematuria, unspecified Status: Acute Assessment and Plan: Resolved. (3) H/O prostatectomy: Code(s): Z90.79 - Acquired absence of other genital organ(s) Status: Acute Assessment and Plan: Will plan to keep TIM drain in today, if drainage decreases overnight, will re-assess for re-moval tomorrow, otherwise f/u Sunday as planned for removal in the office. Pt. will discharge home with acosta leg bag and larger bag for overnight. He is unable to be weaned from 02 at this time, will re-assess with hospitalist tomorrow for hopeful dishcarge. (4) Adenocarcinoma of prostate: Code(s): C61 - Malignant neoplasm of prostate Status: Acute (5) Hypotension: Code(s): I95.9 - Hypotension, unspecified Status: Acute Assessment and Plan: Resolved after fluid bolus x 2 yesterday and holding BPH meds. Appreciate hospitalist input. Subjective Subjective Date/Time Seen: 03/15/23 12:48 Post Op day: 2 Principal diagnosis: Prostate Cancer Interval history: Pt. is better today. He is still requiring oxygen and unable to be weaned off. His pain is improved and tolerable on pain medication. He has had two bowel movements after Senokot and miralax last night. H&H is stable today, afebrile and BP is stable. He is tolerating his diet and activity well. TIM drain output is moderate, with bloody drainage. Acosta is draining clear yellow urine. Review of Systems Cardiovascular: Cardiovascular: Denies chest pain Respiratory: Respiratory: Reports no additional respiratory complaints Gastrointestinal: Gastrointestinal: Denies abdominal pain, Denies nausea and Denies vomiting Genitourinary: Genitourinary: Denies hematuria, Denies dysuria, Denies flank pain, Denies urinary frequency, Denies urinary hesitancy, Denies urinary incontinence and Denies urinary urgency Exam Const: General: cooperative and comfortable Cardio: Rate: regular rate GI: Inspection: incision (all are well approximated, no drainage or redness noted) GI Palp: Yes Soft to palpation and No Tenderness to palpation present (GI) : General: Yes no CVA tenderness and Yes other (TIM drain output is moderate, bloody drainage, TIM drain dressing is dry ) Meatus: Blood at meatus present Urinary Catheter: Urinary Catheter: patent and draining and urine clear Extrem: Right lower extremity: no edema Left lower extremity: no edema Objective Data Vital Signs Vital Signs: Vital Signs - 24 hr 03/14/23 13:24 03/14/23 15:13 03/14/23 15:39 Temperature 98.6 F 98.7 F Pulse Rate 80 Respiratory Rate 16 Blood Pressure 98/61 L 102/59 L Pulse Oximetry 93 81 L Oxygen Delivery Nasal Cannula Oxygen Flow Rate 1.5 Fraction of Inspired Oxygen 03/14/23 19:37 03/14/23 20:00 03/15/23 00:38 Temperature 98.0 F 97.6 F Pulse Rate 71 63 Respiratory Rate 16 16 Blood Pressure 102/58 L 109/64 Pulse Oximetry 93 93 94 Oxygen Delivery Nasal Cannula Oxygen Flow Rate 1 Fraction of Inspired Oxygen 03/15/23 06:56 03/15/23 08:15 03/15/23 08:56 Temperature 97.6 F Pulse Rate 71 Respiratory Rate 14 14 Blood Pressure 132/76 Pulse Oximetry 92 93 93 Oxygen Delivery Nasal Cannula Nasal Cannula Oxygen Flow Rate 1 1 Fraction of Inspired Oxygen 03/15/23 10:30 Temperature 99 F Pulse Rate 75 Respiratory Rate 14 Blood Pressure 123/70 Pulse Oximetry 94 Oxygen Delivery Oxygen Flow Rate Fraction of Inspired Oxygen Intake/Output Intake/Output: Intake & Output 03/12/23 03/13/23 03/14/23 03/15/23 23:59 23:59 23:59 23:59 Intake Total 2740 3310 2139 Output Total 210
[2023-03-15] MEDS: MORPHINE SULFATE (*CRX) 2 MG/ML INJ 1 MG IV PUSH (20:50)
[2023-03-15] MEDS: SENNA/DOCUSATE SODIUM TABLET 1 TAB PO (20:51)
[2023-03-16] VITALS (7 sets, daily range): BP systolic 122–138; BP diastolic 68–82; PULSE 66–86; RESP 14–18; TEMP 36.6–36.9; O2SAT 90–96
[2023-03-16 06:08] LABS: Basophils Percent Auto 0.5 % (0.2-1.2); Eosinophils Absolute Auto 0.3 K/mm3 (0-0.3); Eosinophils Percent Auto 3.3 % (0-4.4); Hematocrit 36.1 % (42.0-52.0); Hemoglobin 11.4 g/dL (14.0-18.0); Immature Granulocyte Absolute 0.03 K/mm3 (0.00-0.031); Immature Granulocyte Percent A 0.4 % (0-0.5); Lymphocytes Absolute Auto 1.72 K/mm3 (0.9-3.2); Lymphocytes Percent Auto 20.9 % (18.3-44.2); Mean Corpuscular HGB Conc 31.6 g/dl (32-36); Mean Corpuscular Hemoglobin 29.5 pg (26-34); Mean Corpuscular Volume 93.5 fl (80-100); Mean Platelet Volume 12.6 fl (7.4-10.4); Monocytes Absolute Auto 0.6 K/mm3 (0.1-0.6); Monocytes Percent Auto 6.8 % (2.6-8.5); Neutrophils Absolute Auto 5.6 K/mm3 (1.3-6.7); Neutrophils Percent Auto 68.1 % (45.5-73.1); Platelet Count Result 110 k/mm3 (150-375); Red Blood Count 3.86 M/mm3 (4.6-6.20); Red Cell Distribution Width 13.7 % (11.5-14.5); White Blood Count 8.2 K/mm3 (4.5-10.0)
[2023-03-16 06:19] LABS: Alanine Aminotransferase 21 U/L (6-50); Albumin Level 3.4 g/dL (3.5-5.1); Alkaline Phosphatase 44 U/L (38-126); Anion Gap 3 mmol/L (8-16); Aspartate Amino Transferase 26 U/L (17-59); Bilirubin,Total 0.8 mg/dL (0.2-1.3); Blood Urea Nitrogen 10 mg/dL (9-20); Calcium 8.8 mg/dL (8.4-10.2); Carbon Dioxide 29 mmol/L (22-30); Chloride 106 mmol/L (98-107); Estimated CRCL calculation 67 ml/min; Estimated Glomerular Filt Rate > 60; Glucose 105 mg/dL (65-110); Potassium 3.8 mmol/L (3.4-5.0); Sodium 138 mmol/L (137-145)
[2023-03-16] MEDS: HYDROcodone/acetaminophen (*CRX) 5-325 MG TABLET 2 TAB PO (10:29)
[2023-03-16] MEDS: polyethylene glycoL 3350 17 GM POWD.PACK PO (10:29)
[2023-03-16] MEDS: ATORVASTATIN 40 MG TABLET PO (10:29)
[2023-03-16] MEDS: levoFLOXacin 500 MG TABLET PO (10:29)
[2023-03-16] MEDS: SIMETHICONE 80 MG TAB.CHEW PO ×2 (10:29→14:20)
--- NOTE | 2023-03-16 10:29 | PM.IMPN ---
Progress Note: A&P Assessment and Plan (1) Abdominal pain: Code(s): R10.9 - Unspecified abdominal pain Status: Acute Assessment and Plan: + abdominal distention and hyperactive bowel sounds Not passing flatus, concerns for ileus low grade temperature of 100.2 New oxygen requirement of 1 L p NC. Patient is not taking deep breaths related to his abdominal pain. Encourage abdominal splinting, cough, deep breathing and use of IS/PEP. CT abdomen ordered stat by urology---no acute process seen. He does have a lot of gas in his bowel. Will give 1 x suppository now and start on miralax and senna. Suspected reactive leukocytosis of 11.7 k/mm3 after surgery--WBC 9.1 today. Chest XR is concerning for atelactasis. IS and Pep therapy ordered. On PO Levaquin per surgery as of 03/14. Will cover for any pneumonia concerns however, atelectasis seems to be the culprit. General diet Can add some simethicone prn (2) H/O prostatectomy: Code(s): Z90.79 - Acquired absence of other genital organ(s) Status: Acute Assessment and Plan: POD [address] Toussaint Surgical incisions are well approximated with glue and JAMES. No S/S of infection. Pain medications, DVT prophylaxis deferred to surgery (3) Hypotension: Code(s): I95.9 - Hypotension, unspecified Status: Acute Assessment and Plan: Blood pressures have been 90's/50's today without tachycardia. Patient denies dizziness Holding blood pressure medications today Monitor blood pressure trends (4) Hematuria: Code(s): R31.9 - Hematuria, unspecified Status: Acute Assessment and Plan: Montaño bag with dark red urine present. Hgb 14.6 prior to surgery Post-op HgB 11.7-->12.2 Trend H/H and monitor for any further decline. Transfuse if HgB less than 7 g/dL Repeat Hgb ordered at 2100 (5) Adenocarcinoma of prostate: Code(s): C61 - Malignant neoplasm of prostate Status: Acute Assessment and Plan: Follow with [facility] POD 2 from prostatectomy Plan Wean oxygen to room air Subjective Date/time seen: 03/16/23 10:29 Interval history: Franco Aly is a 68 year old male with a past medical history of CAD and [place] with stent placement, prostate cancer and abdominal hernia repair.? He presented to [place] on 03/13 for a scheduled robotic assisted nerve-sparing prostatectomy.? He is postop day 1 and has been having abdominal pain and distension.? His blood pressures have also been running lower and he had a low-grade temperature of 100.2?.? Medicine was consulted to follow along with his case and provide recommendations for chronic conditions. 03/14:? Patient is seen resting in bed with his and daughter at bedside.? He appears uncomfortable but in no acute distress.? He complains of abdominal pain and distension.? He denies dizziness, headache, chest pain, shortness a breath, nausea, vomiting, or diarrhea.? His daughter says he ate a burger and some fries for lunch and they feel like he is drinking plenty of fluids.? He did say that his last bowel movement was the day before surgery after using a Fleet enema. On assessment his abdomen is round, distended, with hyperactive bowel sounds.? Surgical incisions are well approximated and open to air without signs and symptoms of infection.? He does have a drain coiled in the right lower quadrant and a Montaño with dark red colored urine.? His chest x-ray taken this morning is concerning for atelectasis.? Urology is ordered a CT of his abdomen and repeat hemoglobin this afternoon. 03/15: Mr Aly is doing better today. He still is requiring 1 L of oxygen to maintain sats > 90%. On room air he desats to 87%. I told him and his that he needs to be up and out of the bed. Yesterday he was not in the chair and so far he has not been up today. His abdomen is less distended today and his pain is improved. He is passing gas and had a bowel movement this mor
--- NOTE | 2023-03-16 13:06 | WPDUROPN2 ---
Progress Note: A&P Assessment and Plan (1) Adenocarcinoma of prostate: Code(s): C61 - Malignant neoplasm of prostate Status: Acute Assessment and Plan: Will discharge home today with both TIM and Montaño catheter. He will record his TIM outputs and call Sunday morning with those results. Will make a decision regarding him keeping as 04 12 appointment on Sunday to have it removed versus leaving it in until his cystogram. He is instructed to ambulate. Subjective Subjective Date/Time Seen: 03/16/23 13:06 Post Op day: 3 Principal diagnosis: Adenocarcinoma prostate Interval history: Patient is feeling better today. He has had small BM and passing flatus even though he is still slightly distended. White count is normal and he is hemodynamically stable at this time. TIM still with a moderate amount of output at this time. Review of Systems Review of Systems: All systems reviewed & are unremarkable except as noted in HPI and below Exam Const: General: cooperative and no acute distress Resp: Effort & Inspection: normal respiratory effort Cardio: Rate: regular rate Rhythm: regular rhythm GI: GI Palp: Yes Soft to palpation (With mild distension) Objective Data Vital Signs Vital Signs: Vital Signs - 24 hr 03/15/23 14:15 03/15/23 20:11 03/15/23 20:00 Temperature 36.5 C 37.1 C Pulse Rate 68 71 71 Respiratory Rate 15 16 16 Blood Pressure 128/62 128/79 Pulse Oximetry 93 96 96 Oxygen Delivery Nasal Cannula Oxygen Flow Rate 1 Fraction of Inspired Oxygen 03/16/23 00:40 03/16/23 06:01 03/16/23 06:46 Temperature 36.6 C 36.9 C Pulse Rate 73 66 67 Respiratory Rate 16 14 Blood Pressure 122/68 133/74 Pulse Oximetry 95 96 93 Oxygen Delivery Oxygen Flow Rate Fraction of Inspired Oxygen 03/16/23 07:35 03/16/23 10:30 Temperature Pulse Rate 69 Respiratory Rate Blood Pressure Pulse Oximetry 90 93 Oxygen Delivery Room Air Oxygen Flow Rate Fraction of Inspired Oxygen Intake/Output Intake/Output: Intake & Output 03/13/23 03/14/23 03/15/23 03/16/23 23:59 23:59 23:59 23:59 Intake Total 2740 3310 2779 590 Output Total 210 3705 2710 680 Balance 2530 -395 69 -90 Meds/Results Medications: Active Medications Generic Name Dose Route Start Last Admin Trade Name Freq PRN Reason Stop Dose Admin Acetaminophen 650 mg 03/14/23 11:37 03/14/23 11:47 Acetaminophen 325 Mg Tablet PO 650 mg Q6H PRN Administration Mild Pain (1-3) or Fever Hydrocodone Bitart/Acetaminophen 1 tab 03/13/23 12:36 03/15/23 12:22 Hydrocodone/Acetaminophen (*Crx) 5-325 Mg Tablet PO 1 tab Q6H PRN Administration Pain Rated 1-3 Hydrocodone Bitart/Acetaminophen 2 tab 03/13/23 12:36 03/16/23 10:29 Hydrocodone/Acetaminophen (*Crx) 5-325 Mg Tablet PO 2 tab Q6H PRN Administration Pain Rated 4-6 Atorvastatin Calcium 40 mg 03/14/23 09:00 03/16/23 10:29 Atorvastatin 40 Mg Tablet PO 40 mg QAM MELINA Administration Carvedilol 3.125 mg 03/13/23 17:00 03/14/23 08:18 Carvedilol 3.125 Mg Tablet PO Not Given BID MEILNA Enalapril Maleate 5 mg 03/13/23 17:00 03/14/23 08:19 Enalapril Maleate 5 Mg Tablet BY MOUTH Not Given BID MELINA Hydrochlorothiazide 12.5 mg 03/14/23 09:00 03/14/23 08:19 Hydrochlorothiazide 12.5 Mg Capsule BY MOUTH Not Given QAM MLEINA Hyoscyamine 0.125 mg 03/13/23 12:36 Hyoscyamine Sulfate 0.125 Mg Tablet SUBLINGUAL Q4H PRN Bladder Spasm Levofloxacin 500 mg 03/14/23 09:00 03/16/23 10:29 Levofloxacin 500 Mg Tablet PO 500 mg DAILY MELINA Administration Morphine Sulfate 1 mg 03/13/23 12:36 03/15/23 20:50 Morphine Sulfate (*Crx) 2 Mg/Ml Inj IV PUSH 1 mg Q2H PRN Administration Pain Rated 7-10 Naloxone HCl 0.1 mg 03/13/23 12:36 Naloxone Hcl 0.4 Mg/Ml Vial IV PUSH Q2M PRN Opiate Reversal Polyethylene Glycol 17 gm 03/15/23 09:00 03/16/23 10:29 Poly
--- NOTE | 2023-03-16 13:10 | PM.DS ---
DS: Admitting Diagnosis Discharge Date 03/16/2023 Admitting Diagnosis Adenocarcinoma prostate DS: Discharge Diagnosis Discharge Diagnosis (1) Adenocarcinoma of prostate: Code(s): C61 - Malignant neoplasm of prostate Status: Acute Assessment and Plan: Will discharge home with Montaño catheter in TIM drain. Family is to record TIM output per 24 hours and call Sunday morning with those results. He is scheduled for a catheter cystogram next Sunday. DS: Summary Hospital Course Reason for hospitalization: Adenocarcinoma of the prostate Hospital Course: Patient underwent a robotic assisted nerve-sparing prostatectomy on Sunday03/13/2023. Postoperatively he was slightly hypotensive. He has stayed hemodynamically stable otherwise. His blood pressure meds were held and he has been managed by the hospitalist service. At time of discharge his vital signs are stable and he is afebrile. He also had an ileus which is resolving at the time of discharge. He has had some BMs as well as passing flatus. He is tolerating a diet and ambulating. Pathology revealed adenocarcinoma the prostate with negative margins. His TIM output is still more than I would prefer and he will be discharged home with the TIM in place. As well as Montaño. Status at Discharge Functional status at discharge: independent ambulation Time Spent with Patient Time attestation: Total time spent providing and/or coordinating discharge services: Exam Const: General: cooperative and comfortable Resp: Effort & Inspection: normal respiratory effort Cardio: Rate: regular rate Rhythm: regular rhythm GI: GI Palp: Yes Soft to palpation (With mild distention) Urinary Catheter: Urinary Catheter: patent and draining and urine clear DS: Data Data Completed and Pending Completed studies during hospitalization: Pending at discharge 03/13/23 09:58 Surgical [PTH] Routine Labs on day of discharge: Labs from last 24 hours 03/16/23 05:27 WBC 8.2 RBC 3.86 L Hgb 11.4 L Hct 36.1 L MCV 93.5 MCH 29.5 MCHC 31.6 L RDW 13.7 Plt Count 110 L MPV 12.6 H Immature Gran % (Auto) 0.4 Neut % (Auto) 68.1 Lymph % (Auto) 20.9 [place] % (Auto) 6.8 Eos % (Auto) 3.3 Baso % (Auto) 0.5 Lymph # (Auto) 1.72 [place] # (Auto) 0.6 Eos # (Auto) 0.3 Baso # (Auto) 0.0 Abs Immat Gran (auto) 0.03 Absolute Neuts (auto) 5.6 Absolute Nucleated RBC 0.0 Nucleated RBC % 0.0 Sodium 138 Potassium 3.8 Chloride 106 Carbon Dioxide 29 Anion Gap 3 L BUN 10 Creatinine 0.90 Estim Creat Clear Calc 67 Estimated GFR > 60 Glucose 105 Calcium 8.8 Total Bilirubin 0.8 AST 26 ALT 21 Alkaline Phosphatase 44 Total Protein 6.0 L Albumin 3.4 L Preliminary micro results at discharge 03/14/23 11:56 Blood Culture - Preliminary Blood 03/14/23 12:00 Blood Culture - Preliminary Blood Discharge Plan Discharge Attending physician on discharge: Eulogio Toussaint Consulting providers: Issac Armando Discharging Clinician: Renata Napier Anticipated Discharge Date/Time: 03/15/23 12:32 Patient Disposition: Home, Self-Care Activity: may shower Diet: regular Wound Care Instructions: remove dressing to shower and incision open to air Discharge Instructions: You will follow up on Sunday, March 19 for your drain removal at 11:30am with Reanta BAUMANN at the [place] office. You will also follow up on SundayMarch 21 for your Cystogram in Radiology at 9:30am at [facility], then immediately after in our office at 11:15 to have your catheter removed. Keep record of your drain output when you empty it. You may shower, remove your drain dressing each day and clean your drain tubing, all incisions on your abdomen and catheter tubing with soap and water then pat dry. Replace your drain dressing with a new one each day. Call the office or go to the ER if you develop a fever, severe pain, or you
== END 2023-03-16 16:27 | disposition home or self-care (01) | DRG 708 ==
LOC: ANHSURGERY 12:15 → ANH2MED 12:15
PROVIDERS: Internal Medicine; Nurse Practitioner Acute Care; Nurse Practitioner Adult Health; Admitting Provider Urology; PCP Physician Assistant; Visit Provider Urology
PROC: 0VT04ZZ Resection of Prostate, Percutaneous Endoscopic Approach (ICD-10-PCS; CPT 55867; principal; 2023-03-13 07:30)
DX: C61 Malignant neoplasm of prostate (principal); R31.9 Hematuria, unspecified; I25.10 Atherosclerotic heart disease of native coronary artery without angina pectoris; I25.2 Old myocardial infarction; I10 Essential (primary) hypertension; I95.9 Hypotension, unspecified; E78.00 Pure hypercholesterolemia, unspecified; Z79.02 Long term (current) use of antithrombotics/antiplatelets; Z79.82 Long term (current) use of aspirin; Z95.5 Presence of coronary angioplasty implant and graft
CPT/HCPCS: 36415; 71045; 74178; 80048; 80053; 83605; 85014; 85018; 85025; 87040; 87086; 88309; 94667; A9270; G0378; J0690; J1100; J1170; J2250; J2270; J2371; J2405; J3010; J7030; J7040; J7120; Q9967

== ENCOUNTER 2023-03-21 09:38 | Outpatient (CLI) | payer MEDICARE, MEDICAID, SELFPAY ==
--- NOTE | ~2023-03-21 | XR_ITS ---
EXAMINATION: CYSTOGRAM DATE: 03/21/2023 10:23 INDICATION: Prostate cancer post prostatectomy TECHNIQUE: Initial urban renewal manager radiograph of the pelvis was performed. There was retrograde administration of Omnipaque 350 mixed with saline contrast into patient's existing Montaño catheter. Fluoroscopic roby ges of the pelvis were obtained. A post-void image was also performed. Fluoroscopy exposure time was 0.7 minutes. A total of 1 overhead radiograph and 12 fluoroscopic images were recorded. FINDINGS: Right lower quadrant surgical drain with distal tip in the right hemipelvis on the urban renewal manager radiograph. There are several phleboliths in the pelvis. There is a subtle thin linear extension of extraluminal contrast extending posteriorly and to the left from the region of the anastomosis consistent with paradise k. IMPRESSION: Tiny bladder leak extending posteriorly to the left from the anastomosis. Reviewed, dictated and finalized at location A. EATION ADVISER
== END 2023-03-21 09:39 | disposition home or self-care (01) ==
PROVIDERS: PCP Physician Assistant; Visit Provider Nurse Practitioner Adult Health
DX: C61 Malignant neoplasm of prostate (principal); N39.492 Postural (urinary) incontinence; Z90.79 Acquired absence of other genital organ(s)
CPT/HCPCS: 51600; 74430; Q9967

== ENCOUNTER 2023-03-28 09:42 | Outpatient (CLI) | payer MEDICARE, MEDICAID, SELFPAY ==
--- NOTE | ~2023-03-28 | XR_ITS ---
EXAMINATION: XR cystogram DATE: 03/28/2023 10:45 INDICATION: Bladder leak after prostatectomy. TECHNIQUE: Water-soluble contrast was gravity-infused through the patient's Montaño catheter. Multiple fluoroscopic images were obtained. Fluoroscopy exposure time was 0.3 minutes. The total number of roby ges was 10. COMPARISON: Cystogram 03/21/2023, CT 03/14/2023 FINDINGS: There is a Montaño catheter in the bladder. There is no extraluminal leakage of contrast. The re is no ureteral reflux. IMPRESSION: 1. No extraluminal leakage of contrast. Reviewed, dictated and finalized at location A. TIONSHIP CONSULTANT
== END 2023-03-28 09:43 | disposition home or self-care (01) ==
PROVIDERS: PCP Physician Assistant; Visit Provider Nurse Practitioner Adult Health
DX: R32 Unspecified urinary incontinence (principal)
CPT/HCPCS: 51600; 74430; Q9967